=== PATIENT | male | born 1960 | race Caucasian/White ===

== ENCOUNTER 2020-03-08 08:52 | Emergency (ER) | payer BC ==
[~2020-03-08] VITALS: Ht 170.2 cm; Wt 97.5 kg
--- NOTE | 2020-03-08 08:52 | NUR ---
PAIN IN BACK OF HEAD AND LOW BACK,SLIPPED AND FELL BACKWARDS THIS MORNING, NO LOC. TO ER BED 11, HOOKED TO BP CUFF AND POX. CHANGED TO HOSP GOWN, WARM BLANKET PROVIDED, PATIENT AAO x 4, BREATHING EVEN AND UNLABORED, NAD NOTED. AWAITING MD MATHIS.
--- NOTE | 2020-03-08 09:28 | NUR ---
DR CHAIDEZ AT BEDSIDE
[2020-03-08] MEDS ORDERED: ACETAMINOPHEN 325 MG TABLET PO ONE (10:00)
[2020-03-08 10:01] VITALS: BP 151/85
--- NOTE | 2020-03-08 10:01 | NUR ---
Patient discharged to home in stable condition. Written and verbal after care instructions given. Patient verbalizes understanding of instruction.
== END 2020-03-08 10:01 | disposition home or self-care (01) ==
LOC: ER 09:11
DX: S09.8XXA Other specified injuries of head, initial encounter (principal); M25.552 Pain in left hip; I10 Essential (primary) hypertension; W01.0XXA Fall on same level from slipping, tripping and stumbling without subsequent striking against object, initial encounter; Y93.01 Activity, walking, marching and hiking; Y92.89 Other specified places as the place of occurrence of the external cause; Y99.8 Other external cause status

== ENCOUNTER 2023-02-16 06:17 | Emergency (ER) | payer BC, MEDICAID ==
[~2023-02-16] VITALS: Ht 170.2 cm; Wt 104.3 kg
[2023-02-16 07:55] VITALS: BP 144/82; TEMP 98; O2SAT 98
== END 2023-02-16 07:56 | disposition home or self-care (01) ==
LOC: ER 06:19
DX: R04.0 Epistaxis (principal); I48.91 Unspecified atrial fibrillation; E11.9 Type 2 diabetes mellitus without complications; I10 Essential (primary) hypertension

== ENCOUNTER 2023-08-12 10:49 | Emergency (ER) | payer BC, MEDICAID ==
[~2023-08-12] VITALS: Ht 170.2 cm; Wt 104.8 kg
[2023-08-12] MEDS ORDERED: KETOROLAC TROMETHAMINE 15 MG/ML VIAL ONE (11:33)
[2023-08-12] MEDS: IV NS 0.9% 1,000 ML BAG IV ONE (11:43)
[2023-08-12] MEDS: KETOROLAC TROMETHAMINE 15 MG/ML VIAL IV ONE (11:44)
[2023-08-12] MEDS ORDERED: HYDR28.318 TP (11:45)
[2023-08-12] MEDS ORDERED: IBUP-1955 PO (11:45)
[2023-08-12 12:25] VITALS: BP 143/97; TEMP 98; O2SAT 99
== END 2023-08-12 12:26 | disposition home or self-care (01) ==
LOC: ER 10:49
DX: R51.9 Headache, unspecified (principal); L93.0 Discoid lupus erythematosus; I10 Essential (primary) hypertension; I48.91 Unspecified atrial fibrillation; E11.9 Type 2 diabetes mellitus without complications
CPT/HCPCS: 99283; 96374; 96361; J7030; J1885